=== PATIENT | female | born 1985 | race Hispanic/Latino ===

== ENCOUNTER 2017-07-04 11:00 | Inpatient (IN) | payer MEDICAID ==
[~2017-07-04] VITALS: Ht 154.9 cm; Wt 98.9 kg
[~2017-07-04 11:00] MED LIST: IBUP-2070 PO; PREN1TAB89 PO; TYL3 PO
[2017-07-04 11:49] LABS: APPEARANCE,URINE Turbid (CLEAR); BILIRUBIN,URINE Negative (NEGATIVE); COLOR,URINE Yellow (YELLOW); GLUCOSE, URINE (UA) Negative (NEGATIVE); KETONES,URINE Trace mg/dL (NEGATIVE); LEUKOCYTE ESTERASE ,URINE Large (NEGATIVE); NITRATE,URINE Negative (NEGATIVE); OCCULT BLOOD,URINE Moderate (NEGATIVE); PROTEIN,URINE Trace (NEGATIVE)
[2017-07-04] MEDS ORDERED: LACTATED RINGERS 1000ML 1,000 ML IV SCH (12:00)
[2017-07-04] MEDS ORDERED: CEFAZOLIN SODIUM 1 GM VIAL IVP PRN (12:00)
[2017-07-04 12:09] LABS: BACTERIA,URINE Moderate /HPF (None Seen); RBC,URINE 0-1 /HPF (0-1); SQUAMOUS EPITHELIAL CELL,UR Moderate /LPF (0-2); WBC,URINE TNTC /HPF (0-1)
[2017-07-04 12:13] LABS: MEAN CORPUSCULAR HEMOGLOBIN 25.3 pg (27.0-33.0); MEAN CORPUSCULAR HGB CONC 34.2 g/dL (32.0-36.0); MEAN CORPUSCULAR VOLUME 73.8 fL (79-99); PLATELET COUNT (AUTO) 348 K/uL (130-400); RED BLOOD CELL COUNT(AUTO) 4.06 MIL/uL (4.00-5.50); RED CELL DISTRIBUTION WIDTH 17.2 % (11.0-15.5); WHITE BLOOD COUNT (AUTO) 9.6 K/uL (4.8-10.8)
[2017-07-04] MEDS ORDERED: OXYTOCIN 10 USP UNITS/ML ONE ×2 (15:19→20:50)
[2017-07-04] MEDS ORDERED: MIDAZOLAM HCL 1 MG/ML 2ML VIAL ONE (15:19)
[2017-07-04] MEDS ORDERED: DURAMORPH PF1 MG/ML 10ML AMP IV ONE (15:36)
[2017-07-04 17:55] VITALS: BP 120/74
[2017-07-04] MEDS ORDERED: NITR100C4 PO (18:30)
[2017-07-04] MEDS ORDERED: FERR-82 PO (18:30)
[2017-07-04] MEDS ORDERED: SODIUM CHLORIDE 0.9% 10 ML VIAL IVP PRN (19:30)
[2017-07-04] MEDS ORDERED: PROMETHAZINE HCL 25 MG/ML 1ML AMPULE IM PRN ×2 (19:30→20:15)
[2017-07-04] MEDS ORDERED: MEPERIDINE-PF 75 MG/ML SYG IM PRN (19:30)
[2017-07-04] MEDS ORDERED: DEXTROSE 5 %-0.45 % NACL 1,000 ML IV PRN (19:30)
[2017-07-04 19:59] VITALS: BP 123/78
[2017-07-04] MEDS ORDERED: ONDANSETRON HCL MDV 20ML 2 MG/ML VIAL IVP PRN (20:15)
[2017-07-04] MEDS ORDERED: ONDANSETRON HCL 4 MG/2 ML 8 MG in SODIUM CHLORIDE 0.9% 50 ML IVP NR (20:15)
[2017-07-04] MEDS ORDERED: EPHEDRINE SULFATE 50 MG/ML AMPULE IVP PRN (20:15)
[2017-07-04] MEDS ORDERED: HYDROCODONE/ACETAMINOPHEN 5/325 MG TAB PO PRN ×2 (20:15)
[2017-07-04] MEDS ORDERED: NALOXONE HCL 0.4 MG/1 ML ML IVP PRN ×2 (20:15)
[2017-07-04] MEDS ORDERED: DiphenhydrAMINE HCL 50 MG/ML VIAL IVP PRN (20:15)
[2017-07-04] MEDS ORDERED: ONDANSETRON HCL 4 MG/2 ML VIAL IVP PRN (20:15)
[2017-07-04] MEDS ORDERED: MORPHINE SULFATE 2 MG/ML 1ML SYG IVP PRN (20:15)
[2017-07-04] MEDS ORDERED: OXYTOCIN-LR 20 UNITS/1000 ML 1,000 ML IV PRN (20:51)
[2017-07-04 23:45] VITALS: BP 107/76
[2017-07-05 03:36] VITALS: BP 119/80
[2017-07-05] MEDS ORDERED: IBUPROFEN 600 MG TABLET PO PRN (04:45)
[2017-07-05] MEDS ORDERED: BISACODYL 10 MG SUPP.RECT RC PRN (04:45)
[2017-07-05] MEDS ORDERED: ACETAMINOPHEN EXTRA STRENGTH 500 MG TABLET PO PRN (04:45)
[2017-07-05] MEDS ORDERED: LANOLIN 30GM OINTMENT TP PRN (04:45)
[2017-07-05] MEDS ORDERED: ACETAMINOPHEN-CODEINE 300/30MG TAB PO PRN (04:45)
[2017-07-05 05:21] LABS: HEMATOCRIT 25.6 % (36-48); MEAN CORPUSCULAR HEMOGLOBIN 25.8 pg (27.0-33.0); MEAN CORPUSCULAR HGB CONC 35.1 g/dL (32.0-36.0); MEAN CORPUSCULAR VOLUME 73.6 fL (79-99); PLATELET COUNT (AUTO) 278 K/uL (130-400); RED BLOOD CELL COUNT(AUTO) 3.49 MIL/uL (4.00-5.50); WHITE BLOOD COUNT (AUTO) 8.6 K/uL (4.8-10.8)
[2017-07-05 07:28] LABS: HEPATITIS Bs ANTIGEN SCREEN P Negative (Negative)
[2017-07-05 07:47] VITALS: BP 117/79
[2017-07-05] MEDS: SIMETHICONE 80 MG TAB.CHEW PO PRN ×3 (08:59→21:03)
[2017-07-05] MEDS: DOCUSATE SODIUM 100 MG CAP PO SCH ×2 (08:59→21:03)
[2017-07-05 11:42] VITALS: BP 116/78
[2017-07-05 15:23] VITALS: BP 125/82
[2017-07-05] MEDS: FLU VACC QS2017-18 36MOS UP/PF 60 MCG/0.5 ML ML IM SCH (17:43)
[2017-07-05] MEDS: DIPH,PERTUSS(ACELL),TET VAC/PF 0.5 ML VIAL IM SCH (17:44)
[2017-07-05 19:26] VITALS: BP 123/79
[2017-07-05 23:35] VITALS: BP 125/81
[2017-07-06 03:57] VITALS: BP 138/86
[2017-07-06] MEDS: DIPH,PERTUSS(ACELL),TET VAC/PF 0.5 ML VIAL IM SCH (04:45)
[2017-07-06] MEDS: FLU VACC QS2017-18 36MOS UP/PF 60 MCG/0.5 ML ML IM SCH (06:15)
[2017-07-06 07:25] VITALS: BP 108/66
[2017-07-06] MEDS: SIMETHICONE 80 MG TAB.CHEW PO PRN (08:46)
[2017-07-06] MEDS: DOCUSATE SODIUM 100 MG CAP PO SCH (08:46)
[2017-07-06 11:33] VITALS: BP 108/66
[2017-07-06] MEDS ORDERED: ACET1TAB12 PO (12:00)
== END 2017-07-06 12:55 | disposition home or self-care (01) | DRG 540 ==
LOC: OBSVTOIN 11:00 → LDH 11:00 → WSH 17:55
PROVIDERS: ADMIT Obstetrics & Gynecology; ATTEND Obstetrics & Gynecology
PROC: 0UB70ZZ Excision of Bilateral Fallopian Tubes, Open Approach (ICD-10-PCS; 2017-07-04)
PROC: 3E0234Z Introduction of Serum, Toxoid and Vaccine into Muscle, Percutaneous Approach (ICD-10-PCS; 2017-07-04)
PROC: 3E0234Z Introduction of Serum, Toxoid and Vaccine into Muscle, Percutaneous Approach (ICD-10-PCS; 2017-07-04)
PROC: 10D00Z1 Extraction of Products of Conception, Low, Open Approach (ICD-10-PCS; principal; 2017-07-04 15:30)
DX: O34.211 Maternal care for low transverse scar from previous cesarean delivery (principal); E66.01 Morbid (severe) obesity due to excess calories; Z30.2 Encounter for sterilization; Z37.0 Single live birth; O99.214 Obesity complicating childbirth; Z68.41 Body mass index [BMI] 40.0-44.9, adult; Z91.018 Allergy to other foods; Z3A.38 38 weeks gestation of pregnancy; Z23 Encounter for immunization
CPT/HCPCS: 36415; 59510; 81001; 85027; 86592; 86850; 86870; 86900; 86901; 86905; 87340; 88302; 90715; A4344; A4450; A4606; J0690; J2250; J2274; J2590; J7120; Q2038